=== PATIENT | male | born 1945 | race Caucasian/White ===

== ENCOUNTER → 2017-01-21 | Outpatient (CLI) | payer MEDICARE, OTHER ==
[~2017-01-21] MED LIST: MAGNESIUM OXIDE 400 MG TAB ONE; MAGNESIUM OXIDE 400 MG TAB PO ONE; POTASSIUM CHL 20 Meq TABLET PO ONE
[2017-01-21 12:25] VITALS: BP 112/82
[2017-01-21 13:18] VITALS: BP 138/72
[2017-01-21 14:25] LABS: CONDITION Y; DEFINITIVE SEE PRINTOUT; Hematocrit 48.4 % (41.0-53.0); Hemoglobin 15.6 g/dL (13.5-17.5); Mean Corpuscular Hemoglobin 23.2 pg (28.0-32.0); Mean Corpuscular Hgb Conc. 32.2 g/dL (32.0-36.0); Mean Corpuscular Volume 72.1 fL (80.0-100.0); Mean Platelet Volume 11.1 fL (7.4-10.4); Platelet Count (auto) 193 10^3/uL (140-450); Red Cell Distribution Width 23.8 % (11.6-16.0); SUSPECT SEE PRINTOUT; White Blood Cell 9.3 10^3/uL (4.4-10.8)
[2017-01-21 14:28] LABS: Metamyelocytes % 0; Myelocytes % 0; Promyelocytes % 0; Reactive Lymphocytes 0
[2017-01-21 14:33] LABS: Albumin 3.7 g/dL (3.4-5.0); BUN/Creatinine Ratio 20.7; Bilirubin, Total 0.6 mg/dL (0.2-1.0); Calcium 8.6 mg/dL (8.5-10.1); Magnesium 2.5 mg/dL (1.6-2.6); Potassium 4.3 mmol/L (3.5-5.1); Total Protein 7.4 g/dL (6.4-8.2)
[2017-01-21 15:49] LABS: Platelet Estimate Adequate
[2017-01-21 15:50] LABS: Ovalocytes FEW; Stomatocytes Few
[2017-01-21 15:52] LABS: Anisocytosis Moderate; Hypochromia Moderate; Polychromasia Slight; Spherocytes FEW
== END | disposition home or self-care (01) ==
LOC: CHF HDHVI 12:28
PROVIDERS: ATTEND Internal Medicine Cardiovascular Disease
DX: I11.0 Hypertensive heart disease with heart failure (principal); I50.9 Heart failure, unspecified; E11.9 Type 2 diabetes mellitus without complications; E83.42 Hypomagnesemia; R70.0 Elevated erythrocyte sedimentation rate; D64.9 Anemia, unspecified; E55.9 Vitamin D deficiency, unspecified; E87.6 Hypokalemia
CPT/HCPCS: 36415; 80053; 82306; 83036; 83735; 85007; 85027; 85652; 93005; G0463